=== PATIENT | male | born 1945 | race Caucasian/White ===

== ENCOUNTER 2022-01-30 23:41 | Observation (INO) | payer MEDICARE, MEDICAID ==
[2022-01-31 01:48] LABS: #Basophils 0.1 10x3/uL (0.0-0.2); #Monocytes 0.8 10x3/uL (0.0-1.1); #Neutrophils 11.5 10x3/uL (1.5-8.4); %Basophils 0.4 % (0.0-2.0); %Eosinophils 0.2 % (0.0-6.0); %Lymphocytes 6.1 % (18.0-47.0); %Monocytes 5.9 % (0.0-10.0); Hemoglobin 14.2 g/dL (13.5-17.5); Mean Corpuscular HGB CONC 35.3 g/dL (32.0-36.0); Mean Corpuscular Hemoglobin 33.2 pg (27.0-33.0); Mean Corpuscular Volume 93.9 fl (81.2-95.1); Platelet Count 268 10x3/uL (150-450); RBC Distribution Width 11.9 % (11.5-14.5); Red Blood Cell (RBC) Count 4.28 10x6/uL (4.32-5.72); White Blood Cell (WBC) Count 13.3 10x3/uL (3.5-10.5)
[2022-01-31] MEDS ORDERED: Ondansetron PF 4 MG/2 ML Vial ONE (01:52)
[2022-01-31] MEDS ORDERED: Morphine 4 MG/ML VIAL ONE ×2 (01:52→04:56)
[2022-01-31 02:07] LABS: ALT (SGPT) 19 U/L (8-55); AST (SGOT) 27 U/L (5-34); Albumin 4.5 g/dL (3.4-4.8); Alkaline Phosphatase 103 U/L (40-110); Anion Gap 21 mmol/L (10-20); BUN (Urea Nitrogen) 15 mg/dL (8.4-25.7); Bilirubin, Total 1.8 mg/dL (0.2-1.2); Calc. Creatinine Clearance 0 mL/min (70-130); Calcium 10.1 mg/dL (7.8-10.44); Carbon Dioxide 21 mmol/L (23-31); Chloride 93 mmol/L (98-107); Globulin 3.1 g/dL (2.4-3.5); Glucose 77 mg/dL (83-110); Potassium 4.6 mmol/L (3.5-5.1); Protein, Total 7.6 g/dL (5.8-8.1); Sodium 130 mmol/L (136-145)
[2022-01-31 02:25] LABS: CKMB 7.7 ng/mL (0-6.6)
[2022-01-31] MEDS ORDERED: Fentanyl 100 MCG/2 ML VIAL ONE (03:43)
[2022-01-31] MEDS ORDERED: Lorazepam 2 MG/ML VIAL ONE (04:56)
[2022-01-31 06:58] LABS: Troponin I 0.074 ng/mL (< 0.028)
[2022-01-31] MEDS ORDERED: Iopamidol 300 61% 100 ML VIAL FS ONE (10:43)
[2022-01-31 12:41] VITALS: BMI 16.8
[2022-01-31 13:39] LABS: Amphetamine Not Detected (NotDetected); Barbiturates Screen Not Detected (NotDetected); Benzodiazepine Screen Not Detected (NotDetected); Cocaine Metabolite Screen Not Detected (NotDetected); Methadone Not Detected (NotDetected); Methamphetamine Not Detected (NotDetected); Opiate Screen Detected (NotDetected); Oxycodone Screen Not Detected (NotDetected); Phencyclidine (PCP) Not Detected (NotDetected); THC/Cannabinoid Screen Not Detected (NotDetected); Tricyclic Screen Not Detected (NotDetected)
[2022-01-31 14:24] LABS: #Monocytes 0.7 10x3/uL (0.0-1.1); #Neutrophils 11.8 10x3/uL (1.5-8.4); %Basophils 0.2 % (0.0-2.0); %Eosinophils 0.1 % (0.0-6.0); %Lymphocytes 5.3 % (18.0-47.0); %Monocytes 5.3 % (0.0-10.0); %Neutrophils 88.8 % (40.0-75.0); Hemoglobin 13.5 g/dL (13.5-17.5); Mean Corpuscular HGB CONC 35.1 g/dL (32.0-36.0); Mean Corpuscular Hemoglobin 33.1 pg (27.0-33.0); Mean Corpuscular Volume 94.4 fl (81.2-95.1); Mean Platelet Volume 9.8 fl (7.4-10.4); Platelet Count 208 10x3/uL (150-450); RBC Distribution Width 12.1 % (11.5-14.5); Red Blood Cell (RBC) Count 4.08 10x6/uL (4.32-5.72); White Blood Cell (WBC) Count 13.3 10x3/uL (3.5-10.5)
[2022-01-31 14:30] LABS: Anion Gap 17 mmol/L (10-20); BUN (Urea Nitrogen) 15 mg/dL (8.4-25.7); Calc. Creatinine Clearance 49 mL/min (70-130); Calcium 9.5 mg/dL (7.8-10.44); Carbon Dioxide 22 mmol/L (23-31); Chloride 95 mmol/L (98-107); Glucose 76 mg/dL (83-110); Potassium 4.2 mmol/L (3.5-5.1); Sodium 130 mmol/L (136-145)
[2022-01-31 14:37] LABS: Troponin I 0.064 ng/mL (< 0.028)
[2022-01-31] MEDS ORDERED: Sodium Chloride 0.9% 500 ML IV SCH (20:15)
[2022-01-31] MEDS ORDERED: Dextrose 5 % And 0.9 % NaCl 1,000 ML IV SCH (20:15)
[2022-01-31] MEDS ORDERED: Famotidine 20 MG TAB PO SCH (21:00)
[2022-02-01 00:02] LABS: SARS-CoV-2 PCR by NAA Not Detected (NotDetected)
[2022-02-01 04:47] LABS: Anion Gap 20 mmol/L (10-20); BUN (Urea Nitrogen) 14 mg/dL (8.4-25.7); CK (CPK) 381 U/L (30-200); Calc. Creatinine Clearance 57 mL/min (70-130); Calcium 8.6 mg/dL (7.8-10.44); Carbon Dioxide 17 mmol/L (23-31); Chloride 101 mmol/L (98-107); Glucose 108 mg/dL (83-110); Potassium 3.6 mmol/L (3.5-5.1); Sodium 134 mmol/L (136-145)
[2022-02-01 05:03] LABS: CKMB 4.5 ng/mL (0-6.6)
[2022-02-01] MEDS ORDERED: Nitroglycerin 0.4 MG TAB (25 Tab Bottle) SL PRN (08:47)
[2022-02-01 09:37] LABS: #Monocytes 1.1 10x3/uL (0.0-1.1); #Neutrophils 11.7 10x3/uL (1.5-8.4); %Basophils 0.1 % (0.0-2.0); %Eosinophils 0.1 % (0.0-6.0); %Lymphocytes 4.5 % (18.0-47.0); %Monocytes 8.3 % (0.0-10.0); %Neutrophils 86.5 % (40.0-75.0); Hemoglobin 13.2 g/dL (13.5-17.5); Mean Corpuscular HGB CONC 35.7 g/dL (32.0-36.0); Mean Corpuscular Hemoglobin 33.2 pg (27.0-33.0); Mean Corpuscular Volume 93.2 fl (81.2-95.1); Platelet Count 178 10x3/uL (150-450); RBC Distribution Width 12.2 % (11.5-14.5); Red Blood Cell (RBC) Count 3.97 10x6/uL (4.32-5.72); White Blood Cell (WBC) Count 13.5 10x3/uL (3.5-10.5)
[2022-02-01] MEDS: Pregabalin 25 MG CAP PO SCH ×4 (09:39→20:37)
[2022-02-01] MEDS: Aspirin 81 mg Enteric Coated Tablet PO SCH (09:40)
[2022-02-01] MEDS ORDERED: traMADol HCl 50 MG TAB PO PRN (10:42)
[2022-02-01] MEDS ORDERED: Nicotine 7 MG PATCH TD SCH (10:45)
[2022-02-01] MEDS ORDERED: Amitriptyline HCl 25 MG TAB PO SCH (21:00)
[2022-02-01] MEDS ORDERED: Sodium Chloride 0.9% 500 ML IV SCH (23:45)
[2022-02-02 04:43] LABS: #Eosinphils 0.1 10x3/uL (0.0-0.5); #Monocytes 1.1 10x3/uL (0.0-1.1); #Neutrophils 5.9 10x3/uL (1.5-8.4); %Basophils 0.3 % (0.0-2.0); %Eosinophils 1.3 % (0.0-6.0); %Lymphocytes 15.9 % (18.0-47.0); %Monocytes 12.7 % (0.0-10.0); %Neutrophils 69.2 % (40.0-75.0); Hemoglobin 10.7 g/dL (13.5-17.5); Mean Corpuscular HGB CONC 35.7 g/dL (32.0-36.0); Mean Corpuscular Hemoglobin 33.3 pg (27.0-33.0); Mean Corpuscular Volume 93.5 fl (81.2-95.1); Mean Platelet Volume 10.1 fl (7.4-10.4); Platelet Count 146 10x3/uL (150-450); Red Blood Cell (RBC) Count 3.21 10x6/uL (4.32-5.72); White Blood Cell (WBC) Count 8.6 10x3/uL (3.5-10.5)
[2022-02-02 04:58] LABS: Anion Gap 13 mmol/L (10-20); BUN (Urea Nitrogen) 15 mg/dL (8.4-25.7); Calc. Creatinine Clearance 67 mL/min (70-130); Calcium 8.1 mg/dL (7.8-10.44); Carbon Dioxide 22 mmol/L (23-31); Chloride 102 mmol/L (98-107); Glucose 103 mg/dL (83-110); Potassium 3.3 mmol/L (3.5-5.1); Sodium 134 mmol/L (136-145)
[2022-02-02] MEDS ORDERED: Potassium Chloride 20 MEQ TAB PO SCH (07:45)
[2022-02-02] MEDS ORDERED: [UNRECOGNIZED DRUG - OTHER] NEB SCH (09:00)
[2022-02-02] MEDS ORDERED: Citalopram 20 MG TAB PO SCH (09:00)
[2022-02-02] MEDS ORDERED: OLODATEROL HCL NEB SCH (09:00)
[2022-02-02] MEDS ORDERED: TIOTROPIUM BR NEB SCH (09:00)
[2022-02-02 09:02] VITALS: BP 140/67; TEMP 97.7
[2022-02-02] MEDS: Pregabalin 25 MG CAP PO SCH (09:03)
[2022-02-02] MEDS: Aspirin 81 mg Enteric Coated Tablet PO SCH (09:03)
== END 2022-02-02 10:15 | disposition home or self-care (01) ==
LOC: CSHERS 23:41 → INTOOBSV 01-31 10:46 → CSHERHOLD 01-31 10:46 → CSHTELE 01-31 11:16
PROVIDERS: ADMIT Internal Medicine; ATTEND Internal Medicine
DX: R07.89 Other chest pain (principal); S20.219A Contusion of unspecified front wall of thorax, initial encounter; R77.8 Other specified abnormalities of plasma proteins; R55 Syncope and collapse; J44.9 Chronic obstructive pulmonary disease, unspecified; E87.1 Hypo-osmolality and hyponatremia; E80.6 Other disorders of bilirubin metabolism; M25.551 Pain in right hip; F17.210 Nicotine dependence, cigarettes, uncomplicated; M43.12 Spondylolisthesis, cervical region; I08.2 Rheumatic disorders of both aortic and tricuspid valves; R64 Cachexia; Z68.1 Body mass index [BMI] 19.9 or less, adult; Z85.51 Personal history of malignant neoplasm of bladder; Z79.83 Long term (current) use of bisphosphonates; Z79.899 Other long term (current) drug therapy; Z98.1 Arthrodesis status; Z20.822 Contact with and (suspected) exposure to COVID-19; W20.8XXA Other cause of strike by thrown, projected or falling object, initial encounter; X58.XXXA Exposure to other specified factors, initial encounter
CPT/HCPCS: 70450; 71045; 71260; 72125; 74177; 80048 ×3; 80053; 80306; 82550 ×2; 82553 ×3; 82962; 83735; 84484 ×4; 85025 ×3; 93005 ×3; 93306; 94760; 96361; 96374 ×2; 96375 ×2; 96376 ×2; 97110; 97139 ×2; 97530; 99283; 99285; G0378 ×3; J2270; U0003; U0005; 36415; 36416; 84443; 93010; J1885; J2060; J2405; J3010; J7030; J7042; Q9967

== ENCOUNTER 2022-02-02 12:35 | Emergency (ER) | payer MEDICARE, MEDICAID ==
[2022-02-02 13:36] LABS: #Eosinphils 0.2 10x3/uL (0.0-0.5); #Monocytes 0.9 10x3/uL (0.0-1.1); #Neutrophils 7.9 10x3/uL (1.5-8.4); %Basophils 0.3 % (0.0-2.0); %Eosinophils 1.5 % (0.0-6.0); %Lymphocytes 9.6 % (18.0-47.0); %Monocytes 9.1 % (0.0-10.0); Hemoglobin 12.3 g/dL (13.5-17.5); Mean Corpuscular HGB CONC 36.4 g/dL (32.0-36.0); Mean Corpuscular Hemoglobin 33.3 pg (27.0-33.0); Mean Corpuscular Volume 91.6 fl (81.2-95.1); Mean Platelet Volume 10.7 fl (7.4-10.4); Platelet Count 180 10x3/uL (150-450); RBC Distribution Width 11.9 % (11.5-14.5); Red Blood Cell (RBC) Count 3.69 10x6/uL (4.32-5.72)
[2022-02-02] MEDS ORDERED: Morphine 2 MG/ML VIAL ONE ×2 (13:42→14:58)
[2022-02-02 13:47] LABS: ALT (SGPT) 17 U/L (8-55); AST (SGOT) 24 U/L (5-34); Albumin 3.4 g/dL (3.4-4.8); Alkaline Phosphatase 71 U/L (40-110); Anion Gap 15 mmol/L (10-20); BUN (Urea Nitrogen) 11 mg/dL (8.4-25.7); Bilirubin, Total 1.9 mg/dL (0.2-1.2); Calc. Creatinine Clearance 0 mL/min (70-130); Carbon Dioxide 24 mmol/L (23-31); Chloride 95 mmol/L (98-107); Glucose 112 mg/dL (83-110); Magnesium 1.4 mg/dL (1.6-2.6); Potassium 3.6 mmol/L (3.5-5.1); Protein, Total 6.4 g/dL (5.8-8.1); Sodium 130 mmol/L (136-145)
[2022-02-02 14:14] LABS: CKMB 3.9 ng/mL (0-6.6)
[2022-02-02] MEDS ORDERED: Ketorolac Tromethamine 30 MG/ML VIAL ONE (14:58)
== END 2022-02-02 19:07 | disposition home or self-care (01) ==
LOC: CSHERS 12:35
DX: S20.219A Contusion of unspecified front wall of thorax, initial encounter (principal); J44.9 Chronic obstructive pulmonary disease, unspecified; F17.210 Nicotine dependence, cigarettes, uncomplicated; X58.XXXA Exposure to other specified factors, initial encounter
CPT/HCPCS: 82553; 83735; 84443; 84484; 93005; J1885; J2270